=== PATIENT | female | born 1945 | race Caucasian/White ===

== ENCOUNTER → 2017-01-30 | Outpatient (REF) | payer MEDICARE, BC | LOC: M LAB REF 13:14 | PROVIDERS: ATTEND Internal Medicine | DX: K76.0 Fatty (change of) liver, not elsewhere classified (principal) ==

== ENCOUNTER → 2018-05-13 | Outpatient (REF) | payer MEDICARE, BC ==
[2018-05-14 13:06] LABS: VITAMIN B12 LEVEL 899 PG/ML (247-911)
== END ==
LOC: M LAB REF 12:07
DX: L63.9 Alopecia areata, unspecified (principal); L30.9 Dermatitis, unspecified
CPT/HCPCS: 82607

== ENCOUNTER → 2018-06-04 | Outpatient (REF) | payer MEDICARE, BC ==
[2018-06-04 13:23] LABS: DIGOXIN LEVEL 0.9 NG/ML (0.5-2.0)
== END ==
LOC: M LAB REF 11:52
DX: I48.91 Unspecified atrial fibrillation (principal)
CPT/HCPCS: 80162

== ENCOUNTER → 2018-06-09 | Outpatient (REF) | payer MEDICARE, BC ==
[2018-06-09 13:55] LABS: DIGOXIN LEVEL 0.9 NG/ML (0.5-2.0)
== END ==
LOC: M LAB REF 12:35
DX: I48.91 Unspecified atrial fibrillation (principal)
CPT/HCPCS: 80162

== ENCOUNTER → 2018-06-25 | Outpatient (REF) | payer MEDICARE, BC | LOC: M LAB REF 16:32 | PROVIDERS: ATTEND Internal Medicine | DX: I48.91 Unspecified atrial fibrillation (principal) ==

== ENCOUNTER → 2018-08-25 | Outpatient (REF) | payer MEDICARE, BC | LOC: M LAB REF 12:07 | PROVIDERS: ATTEND Internal Medicine | DX: I48.91 Unspecified atrial fibrillation (principal) ==

== ENCOUNTER → 2018-10-20 | Outpatient (REF) | payer MEDICARE, BC | LOC: M LAB REF 13:35 | PROVIDERS: ATTEND Internal Medicine | DX: I48.91 Unspecified atrial fibrillation (principal) ==

== ENCOUNTER → 2019-03-04 | Outpatient (REF) | payer MEDICARE, BC | LOC: M LAB REF 13:30 | PROVIDERS: ATTEND Internal Medicine | DX: I50.32 Chronic diastolic (congestive) heart failure (principal) ==